=== PATIENT | female | born 1975 | race Caucasian/White ===

== ENCOUNTER 2017-01-07 15:14 | Outpatient (CLI) ==
[2017-01-07 15:20] LABS: BASOPHILS % (AUTO) 1.1 % (0.0-3.0); EOSINOPHILS # (AUTO) 0.1 K/ul (0.0-0.7); EOSINOPHILS % (AUTO) 2.8 % (0.0-7.0); HEMATOCRIT 38.4 % (37.0-47.0); HEMOGLOBIN 12.8 g/dl (12.0-16.0); IMMATURE GRANULOCYTE % (AUTO) 0.3 % (0.0-5.0); LYMPHOCYTES # (AUTO) 1.5 K/uL (0.60-3.4); LYMPHOCYTES % (AUTO) 40.8 (10.0-50.0); MEAN CORPUSCULAR HEMOGLOBIN 30.1 pg (27.0-31.0); MEAN CORPUSCULAR HGB CONC 33.3 (31.8-35.4); MEAN CORPUSCULAR VOLUME 90.4 fl (81.0-99.0); MONOCYTES # (AUTO) 0.3 K/uL (0.4-2.0); MONOCYTES % (AUTO) 7.8 (0-10); NEUTROPHILS # (AUTO) 1.7 K/ul (2.0-6.9); NEUTROPHILS % (AUTO) 47.2; PLATELET COUNT 250 10^3/uL (140-440); RED BLOOD COUNT 4.25 10^6/ul (4.20-5.40); WHITE BLOOD COUNT 3.58 K/ul (4.6-10.2)
[2017-01-07 16:00] LABS: ALBUMIN 3.9 g/dL (3.4-5.0); ALBUMIN/GLOBULIN RATIO 1.15; ANION GAP 11.1; BILIRUBIN,TOTAL 0.43 mg/dL (0.00-1.20); BUN/CREATININE RATIO 18.82; CALCIUM 9.6 mg/dL (8.2-10.2); CREATININE 0.85 mg/dL (0.60-1.30); POTASSIUM 4.1 mmol/L (3.5-5.10); TOTAL PROTEIN 7.3 g/dL (6.4-8.2)
== END 2017-01-07 15:15 | disposition home or self-care (01) ==
LOC: NONPT 15:14
PROVIDERS: ATTEND Nurse Practitioner Family
DX: F41.8 Other specified anxiety disorders (principal)
CPT/HCPCS: 80053; 84439; 84443; 85025

== ENCOUNTER 2017-03-16 16:03 | Emergency (ER) ==
[2017-03-16 16:07] VITALS: BP 167/84; TEMP 98.4; BMI 24.2
[2017-03-16] MEDS ORDERED: DILAUDID 1 MG/ML SYRINGE IM STA (16:56)
[2017-03-16] MEDS ORDERED: ZOFRAN ODT PO STA (17:02)
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
== END 2017-03-16 18:09 | disposition home or self-care (01) ==
LOC: ED 16:03
DX: S80.11XA Contusion of right lower leg, initial encounter (principal); S81.811A Laceration without foreign body, right lower leg, initial encounter; S50.812A Abrasion of left forearm, initial encounter; S50.811A Abrasion of right forearm, initial encounter; M25.571 Pain in right ankle and joints of right foot; W11.XXXA Fall on and from ladder, initial encounter
CPT/HCPCS: 96372; 99283

== ENCOUNTER 2017-03-22 14:06 | Emergency (ER) ==
[2017-03-22 14:07] VITALS: BMI 24.2
[2017-03-22 14:14] VITALS: BP 142/87; TEMP 98
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
[2017-03-22] MEDS ORDERED: NORCO 10-325 PO STA (14:33)
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
== END 2017-03-22 15:23 | disposition home or self-care (01) ==
LOC: ED 14:06
DX: S00.93XA Contusion of unspecified part of head, initial encounter (principal); S19.9XXA Unspecified injury of neck, initial encounter; Y04.2XXA Assault by strike against or bumped into by another person, initial encounter
CPT/HCPCS: 99283

== ENCOUNTER 2017-10-10 12:08 | Outpatient (CLI) | END 2017-10-10 12:09 | disposition home or self-care (01) | LOC: FCC-LAB 12:08 | PROVIDERS: ATTEND Nurse Practitioner Family | DX: J03.90 Acute tonsillitis, unspecified (principal); R52 Pain, unspecified; M54.5 Low back pain | CPT/HCPCS: 36415; 80053; 81001; 85025; 86308; 87086; 87186; 87651 ==